=== PATIENT | male | born 1960 | race Hispanic/Latino ===

== ENCOUNTER 2022-07-17 01:28 | Inpatient (IN) | payer OTHER ==
[~2022-07-17] VITALS: Ht 172.7 cm; Wt 112.0 kg
[2022-07-17 05:36] VITALS: BP 142/84
[2022-07-17 07:00] VITALS: BP 135/81
[2022-07-17] MEDS ORDERED: ACET325T51 PO (07:09)
[2022-07-17] MEDS ORDERED: POLY17PO4 PO (07:09)
[2022-07-17] MEDS ORDERED: ATOR-2 PO (07:09)
[2022-07-17] MEDS ORDERED: ENOX120D SQ (07:09)
[2022-07-17] MEDS ORDERED: NALO.4II IV (07:09)
[2022-07-17] MEDS ORDERED: ASPI-1197 PO (07:09)
[2022-07-17] MEDS ORDERED: INSU100V SQ (07:09)
[2022-07-17] MEDS ORDERED: MAGN2PIG IV (07:09)
[2022-07-17] MEDS ORDERED: ONDA22I IV (07:09)
[2022-07-17] MEDS ORDERED: NS1000 IV (07:09)
[2022-07-17] MEDS ORDERED: CILO50TA2 PO (07:09)
[2022-07-17] MEDS ORDERED: HYDR0.5S2 IV (07:09)
[2022-07-17] MEDS ORDERED: KCL10IV IV (07:09)
[2022-07-17] MEDS ORDERED: SACU1TAB7 PO (07:09)
[2022-07-17] MEDS ORDERED: FOLI0.8T2 PO (07:09)
[2022-07-17] MEDS ORDERED: ACET650S14 RC (07:09)
[2022-07-17] MEDS ORDERED: DIGO125T71 PO (07:09)
[2022-07-17] MEDS ORDERED: [UNRECOGNIZED DRUG - CODE] IV (07:09)
[2022-07-17] MEDS ORDERED: MAG-37 PO (07:09)
[2022-07-17] MEDS ORDERED: POTA-202 PO (07:09)
[2022-07-17] MEDS ORDERED: HYDR-4060 PO (07:09)
[2022-07-17 08:03] LABS: HEMATOCRIT 39.7 % (42-54); MEAN CORPUSCULAR HEMOGLOBIN 30.8 pg (27.0-33.0); MEAN CORPUSCULAR VOLUME 93.4 fL (79-99); RED BLOOD CELL COUNT(AUTO) 4.25 MIL/uL (4.50-6.20); RED CELL DISTRIBUTION WIDTH 12.6 % (11.0-15.5); WHITE BLOOD COUNT (AUTO) 7.1 K/uL (4.8-10.8)
[2022-07-17 08:27] LABS: ALBUMIN 2.9 g/dL (3.5-5.0); CREATININE 1.2 mg/dL (0.5-1.5); MAGNESIUM 2.1 mg/dL (1.80-2.40); POTASSIUM 4.3 mmol/L (3.5-5.1)
[2022-07-17] MEDS ORDERED: ONDANSETRON 4MG INJ ONE (08:52)
[2022-07-17 10:34] LABS: INR 1.01 (0.85-1.15)
[2022-07-17 10:35] LABS: PARTIAL THROMBOPLASTIN TIME 33.3 SEC (26.3-35.5)
[2022-07-17 11:00] VITALS: BP 146/90
[2022-07-17 13:28] LABS: HEMOGLOBIN A1C 7.4 % (4.0-6.0)
[2022-07-17] MEDS: ARTIFICAL TEARS SOL 15 ML OU SCH ×2 (13:30→20:15)
[2022-07-17] MEDS ORDERED: ACETAMINOPHEN 325 MG TAB PO PRN ×2 (13:30→15:30)
[2022-07-17 13:47] LABS: CHOLESTEROL 126 mg/dL (<200); HDL CHOLESTEROL 35 mg/dL (29-71); LDL DIRECT 80 mg/dL (0-99); TRIGLYCERIDES 108 mg/dL (30-200)
[2022-07-17] MEDS ORDERED: ACETAMINOPHEN 650 MG SUPPOSITORY RC PRN (15:30)
[2022-07-17] MEDS ORDERED: MAGNESIUM 2GM PREMIX 50ML IV PRN (15:30)
[2022-07-17] MEDS ORDERED: POTASSIUM CHLORIDE 10MEQ/100ML 10 MEQ/100 ML ML IV PRN (15:30)
[2022-07-17] MEDS ORDERED: SODIUM CHLORIDE 0.9% IV PRN (15:30)
[2022-07-17] MEDS ORDERED: ONDANSETRON 4MG INJ IV PRN (15:30)
[2022-07-17] MEDS ORDERED: [UNRECOGNIZED DRUG - OTHER] IV PRN (15:30)
[2022-07-17] MEDS ORDERED: POLYETHYLENE GLYCOL 3350 17 GM POWD.PACK PO PRN (15:30)
[2022-07-17] MEDS ORDERED: KCL 20 MEQ ERTAB PO PRN (15:30)
[2022-07-17] MEDS ORDERED: NALOXONE HCL 0.4 MG/1 ML ML IV PRN (15:30)
[2022-07-17] MEDS ORDERED: CALCIUM GLUCONATE IV PRN (15:30)
[2022-07-17] MEDS ORDERED: CLOPIDOGREL 300MG TAB PO SCH (15:30)
[2022-07-17] MEDS ORDERED: MAG/ALUM/SIMETH 30 ML UDCUP PO PRN (15:30)
[2022-07-17] MEDS: INSULIN HUMULIN R 100 UNIT/ML 3ML SQ SCH ×2 (15:42→20:19)
[2022-07-17 16:00] VITALS: BP 138/78
[2022-07-17] MEDS ORDERED: CALCIUM GLUC 1GM 1 GM in 0.9%NACL 100ML 100 ML IV SCH (16:00)
[2022-07-17] MEDS ORDERED: IPRATROPIUM 0.5 MG/2.5 ML INH IH SCH (18:00)
[2022-07-17 20:05] VITALS: BP 132/80
[2022-07-17] MEDS: SACUBITRIL/VALSARTAN 1 EACH TABLET PO SCH (20:16)
[2022-07-17] MEDS: ATORVASTATIN 40 MG TABLET PO SCH (20:16)
[2022-07-17] MEDS: FAMOTIDINE 20MG TAB PO SCH (20:20)
[2022-07-17] MEDS: HYDROCODONE/ACETAMINOPHEN 5/325 MG TAB PO PRN (20:28)
[2022-07-17 23:43] VITALS: BP 141/73
[2022-07-18] VITALS (12 sets, daily range): BP systolic 102–147; BP diastolic 50–78
[2022-07-18] MEDS: ARTIFICAL TEARS SOL 15 ML OU SCH ×4 (01:01→18:14)
[2022-07-18] MEDS: HYDROMORPHONE 0.5 MG SYG (0.5MG/0.5ML) IV PRN ×2 (01:41→09:09)
[2022-07-18 03:36] LABS: BASOPHILS % (AUTO) 0.6 % (0.0-5.0); EOSINOPHILS % (AUTO) 3.9 % (0.0-8.0); HEMATOCRIT 39.1 % (42-54); LYMPHOCYTES % (AUTO) 26.5 % (21.0-51.0); MEAN CORPUSCULAR HEMOGLOBIN 30.5 pg (27.0-33.0); MEAN CORPUSCULAR HGB CONC 33.2 g/dL (32.0-36.0); MEAN CORPUSCULAR VOLUME 91.8 fL (79-99); MONOCYTES % (AUTO) 11.5 % (3.0-13.0); NEUTROPHILS % (AUTO) 57.4 % (40.0-77.0); PLATELET COUNT (AUTO) 273 K/uL (130-400); RED BLOOD CELL COUNT(AUTO) 4.26 MIL/uL (4.50-6.20); RED CELL DISTRIBUTION WIDTH 12.6 % (11.0-15.5); WHITE BLOOD COUNT (AUTO) 6.7 K/uL (4.8-10.8)
[2022-07-18 03:52] LABS: CREATININE 1.2 mg/dL (0.5-1.5); MAGNESIUM 2.2 mg/dL (1.80-2.40); PHOSPHORUS 3.3 mg/dL (2.5-4.9)
[2022-07-18] MEDS: 0.9%NACL 1000ML 1,000 ML IV SCH ×2 (05:00→09:58)
[2022-07-18] MEDS ORDERED: DEXTROSE 50%-WATER 50 ML DISP.SYRIN IV ONE (05:45)
[2022-07-18] MEDS: INSULIN HUMULIN R 100 UNIT/ML 3ML SQ SCH ×4 (07:30→21:00)
[2022-07-18] MEDS: SACUBITRIL/VALSARTAN 1 EACH TABLET PO SCH ×2 (09:00→21:04)
[2022-07-18] MEDS: ASPIRIN 81MG CHEW TAB PO SCH (09:00)
[2022-07-18] MEDS: CLOPIDOGREL 75MG TAB PO SCH (09:00)
[2022-07-18] MEDS: FAMOTIDINE 20MG TAB PO SCH ×2 (09:00→21:04)
[2022-07-18] MEDS: Vitamin B Complex/Vit C/Folic Acid PO SCH (09:00)
[2022-07-18] MEDS ORDERED: FENTANYL CITRATE PF 50 MCG/1 ML 2ML VIAL ONE ×2 (09:46→11:30)
[2022-07-18] MEDS ORDERED: LIDOCAINE HCL 400MG/20ML VIAL ONE (09:46)
[2022-07-18] MEDS ORDERED: HEPARIN 10,000 UNIT/10ML (1,000 UNIT/ML) VIAL ONE (09:47)
[2022-07-18] MEDS ORDERED: IODIXANOL 320 MG/ML 100 ML VIAL ONE (09:47)
[2022-07-18] MEDS ORDERED: MIDAZOLAM HCL 1 MG/ML 2ML VIAL ONE ×2 (09:47→11:31)
[2022-07-18] MEDS ORDERED: NITROGLYCERIN 50MG VIAL ONE (09:47)
[2022-07-18] MEDS ORDERED: NICARDIPINE 25MG INJ IV ONE (11:11)
[2022-07-18] MEDS ORDERED: LABETALOL 20MG SYG IV ONE (11:11)
[2022-07-18] MEDS ORDERED: HEPARIN 1,000 UNIT VIAL ONE (11:33)
[2022-07-18] MEDS ORDERED: ASPIRIN 325MG EC TAB PO ONE (12:16)
[2022-07-18] MEDS ORDERED: GLUCAGON 1MG KIT 1 MG ML IM PRN (12:30)
[2022-07-18] MEDS ORDERED: 0.9%NACL 1000ML 1,000 ML IV SCH (12:30)
[2022-07-18] MEDS ORDERED: DEXTROSE 50%-WATER 50 ML DISP.SYRIN IV PRN (12:30)
[2022-07-18] MEDS: DIGOXIN 125 MCG TABLET PO SCH (16:55)
[2022-07-18] MEDS: HYDROCODONE/ACETAMINOPHEN 5/325 MG TAB PO PRN ×2 (16:55→21:04)
[2022-07-18] MEDS: ATORVASTATIN 40 MG TABLET PO SCH (21:04)
[2022-07-19 00:04] VITALS: BP 147/79
[2022-07-19] MEDS: ARTIFICAL TEARS SOL 15 ML OU SCH ×4 (01:30→17:11)
[2022-07-19] MEDS: HYDROCODONE/ACETAMINOPHEN 5/325 MG TAB PO PRN ×2 (03:30→17:14)
[2022-07-19 03:56] VITALS: BP 153/82
[2022-07-19 03:58] LABS: HEMATOCRIT 38.1 % (42-54); MEAN CORPUSCULAR HEMOGLOBIN 30.8 pg (27.0-33.0); MEAN CORPUSCULAR HGB CONC 33.3 g/dL (32.0-36.0); MEAN CORPUSCULAR VOLUME 92.3 fL (79-99); RED BLOOD CELL COUNT(AUTO) 4.13 MIL/uL (4.50-6.20); RED CELL DISTRIBUTION WIDTH 12.6 % (11.0-15.5); WHITE BLOOD COUNT (AUTO) 8.5 K/uL (4.8-10.8)
[2022-07-19 04:09] LABS: CREATININE 1.1 mg/dL (0.5-1.5); POTASSIUM 4.1 mmol/L (3.5-5.1)
[2022-07-19 04:27] LABS: DIGOXIN 0.29 ng/mL (0.50-2.00)
[2022-07-19 07:00] VITALS: BP 130/82
[2022-07-19] MEDS: INSULIN HUMULIN R 100 UNIT/ML 3ML SQ SCH ×4 (07:30→19:47)
[2022-07-19] MEDS: CLOPIDOGREL 75MG TAB PO SCH (07:46)
[2022-07-19] MEDS: SACUBITRIL/VALSARTAN 1 EACH TABLET PO SCH ×2 (07:46→19:46)
[2022-07-19] MEDS: ASPIRIN 81MG CHEW TAB PO SCH (07:46)
[2022-07-19] MEDS: FAMOTIDINE 20MG TAB PO SCH ×2 (07:46→19:46)
[2022-07-19] MEDS: HYDROMORPHONE 0.5 MG SYG (0.5MG/0.5ML) IV PRN ×2 (07:47→12:48)
[2022-07-19] MEDS: Vitamin B Complex/Vit C/Folic Acid PO SCH (07:47)
[2022-07-19 11:46] VITALS: BP 125/82
[2022-07-19 16:00] VITALS: BP 134/78
[2022-07-19] MEDS: DIGOXIN 125 MCG TABLET PO SCH (17:15)
[2022-07-19] MEDS: ATORVASTATIN 40 MG TABLET PO SCH (19:46)
[2022-07-19 19:50] VITALS: BP 151/79
[2022-07-20] VITALS (7 sets, daily range): BP systolic 114–140; BP diastolic 56–89
[2022-07-20] MEDS: ARTIFICAL TEARS SOL 15 ML OU SCH ×4 (00:49→17:11)
[2022-07-20] MEDS: INSULIN HUMULIN R 100 UNIT/ML 3ML SQ SCH ×4 (06:37→20:27)
[2022-07-20] MEDS: HYDROMORPHONE 0.5 MG SYG (0.5MG/0.5ML) IV PRN ×2 (07:14→20:38)
[2022-07-20] MEDS: CLOPIDOGREL 75MG TAB PO SCH (07:15)
[2022-07-20] MEDS: SACUBITRIL/VALSARTAN 1 EACH TABLET PO SCH ×2 (07:17→20:24)
[2022-07-20] MEDS: Vitamin B Complex/Vit C/Folic Acid PO SCH (07:17)
[2022-07-20] MEDS: FAMOTIDINE 20MG TAB PO SCH ×2 (07:17→20:25)
[2022-07-20] MEDS: ASPIRIN 81MG CHEW TAB PO SCH (07:19)
[2022-07-20] MEDS: HYDROCODONE/ACETAMINOPHEN 5/325 MG TAB PO PRN (11:28)
[2022-07-20] MEDS ORDERED: VANCOMYCIN PROTOCOL PER PHARMACY IV SCH (14:00)
[2022-07-20] MEDS ORDERED: VANCOMYCIN 1.5 GM/250 ML BAG 250 ML IV SCH (14:13)
[2022-07-20] MEDS ORDERED: COMPOUND IV REFRIGERATED 1 EACH IVSOLN MISC PRN (14:30)
[2022-07-20] MEDS: ZOSYN 3.375GM +NS 50ML IVPB SCH ×2 (14:31→22:09)
[2022-07-20] MEDS: DIGOXIN 125 MCG TABLET PO SCH (16:31)
[2022-07-20] MEDS: VANCOMYCIN 1.5 GM/250 ML BAG 250 ML IV SCH (20:24)
[2022-07-20] MEDS: ATORVASTATIN 40 MG TABLET PO SCH (20:25)
[2022-07-21] MEDS: ARTIFICAL TEARS SOL 15 ML OU SCH ×4 (01:20→20:58)
[2022-07-21 03:14] VITALS: BP 135/83
[2022-07-21] MEDS: ZOSYN 3.375GM +NS 50ML IVPB SCH ×3 (05:40→22:23)
[2022-07-21] MEDS: HYDROMORPHONE 0.5 MG SYG (0.5MG/0.5ML) IV PRN ×4 (05:40→22:53)
[2022-07-21] MEDS: INSULIN HUMULIN R 100 UNIT/ML 3ML SQ SCH ×4 (05:41→20:49)
[2022-07-21] MEDS: ASPIRIN 81MG CHEW TAB PO SCH (08:12)
[2022-07-21] MEDS: Vitamin B Complex/Vit C/Folic Acid PO SCH (08:12)
[2022-07-21] MEDS: FAMOTIDINE 20MG TAB PO SCH ×2 (08:12→20:49)
[2022-07-21] MEDS: VANCOMYCIN 1.5 GM/250 ML BAG 250 ML IV SCH ×2 (08:12→20:47)
[2022-07-21] MEDS: CLOPIDOGREL 75MG TAB PO SCH (08:13)
[2022-07-21] MEDS: BACITRACIN 1 EACH PACKET TP SCH (08:13)
[2022-07-21] MEDS: SACUBITRIL/VALSARTAN 1 EACH TABLET PO SCH ×2 (08:13→20:49)
[2022-07-21 08:40] VITALS: BP 136/73
[2022-07-21 11:43] VITALS: BP 136/66
[2022-07-21 16:30] VITALS: BP 135/75
[2022-07-21] MEDS: DIGOXIN 125 MCG TABLET PO SCH (16:30)
[2022-07-21 18:59] VITALS: BP 143/78
[2022-07-21] MEDS: ATORVASTATIN 40 MG TABLET PO SCH (20:49)
[2022-07-21] MEDS: ENOXAPARIN SODIUM 40 MG/0.4 ML SYRINGE SQ SCH (22:30)
[2022-07-21 23:10] VITALS: BP 146/82
[2022-07-22] MEDS: ARTIFICAL TEARS SOL 15 ML OU SCH ×2 (01:08→06:40)
[2022-07-22 03:18] VITALS: BP 135/78
[2022-07-22 03:34] LABS: BASOPHILS % (AUTO) 0.3 % (0.0-5.0); LYMPHOCYTES % (AUTO) 17.9 % (21.0-51.0); MEAN CORPUSCULAR HGB CONC 33.9 g/dL (32.0-36.0); MEAN CORPUSCULAR VOLUME 91.3 fL (79-99); MONOCYTES % (AUTO) 8.6 % (3.0-13.0); NEUTROPHILS % (AUTO) 69.8 % (40.0-77.0); PLATELET COUNT (AUTO) 255 K/uL (130-400); RED BLOOD CELL COUNT(AUTO) 4.16 MIL/uL (4.50-6.20); RED CELL DISTRIBUTION WIDTH 12.6 % (11.0-15.5); WHITE BLOOD COUNT (AUTO) 9.6 K/uL (4.8-10.8)
[2022-07-22 04:09] LABS: CREATININE 1.1 mg/dL (0.5-1.5); POTASSIUM 4.1 mmol/L (3.5-5.1)
[2022-07-22] MEDS: HYDROMORPHONE 0.5 MG SYG (0.5MG/0.5ML) IV PRN ×2 (05:16→11:22)
[2022-07-22] MEDS: ZOSYN 3.375GM +NS 50ML IVPB SCH (05:19)
[2022-07-22] MEDS: INSULIN HUMULIN R 100 UNIT/ML 3ML SQ SCH ×2 (05:48→11:22)
[2022-07-22 07:42] VITALS: BP 146/76
[2022-07-22] MEDS ORDERED: CLOP-31 PO (09:02)
[2022-07-22] MEDS ORDERED: DOXY100C5 PO (09:02)
[2022-07-22] MEDS: Vitamin B Complex/Vit C/Folic Acid PO SCH (09:13)
[2022-07-22] MEDS: FAMOTIDINE 20MG TAB PO SCH (09:14)
[2022-07-22] MEDS: ASPIRIN 81MG CHEW TAB PO SCH (09:14)
[2022-07-22] MEDS: SACUBITRIL/VALSARTAN 1 EACH TABLET PO SCH (09:14)
[2022-07-22] MEDS: BACITRACIN 1 EACH PACKET TP SCH (09:14)
[2022-07-22] MEDS: CLOPIDOGREL 75MG TAB PO SCH (09:14)
[2022-07-22] MEDS: ENOXAPARIN SODIUM 40 MG/0.4 ML SYRINGE SQ SCH (09:15)
[2022-07-22] MEDS: VANCOMYCIN 1.5 GM/250 ML BAG 250 ML IV SCH (09:16)
[2022-07-22 12:32] VITALS: BP 137/92
== END 2022-07-22 15:43 | disposition home or self-care (01) | DRG 272 ==
LOC: 2DH 05:09 → OBSVTOIN 05:09
PROVIDERS: ADMIT Internal Medicine Critical Care Medicine; ATTEND Internal Medicine Critical Care Medicine
PROC: 04CK3ZZ Extirpation of Matter from Right Femoral Artery, Percutaneous Approach (ICD-10-PCS; principal; 2022-07-18)
PROC: 047K3D1 Dilation of Right Femoral Artery with Intraluminal Device, using Drug-Coated Balloon, Percutaneous Approach (ICD-10-PCS; 2022-07-18)
PROC: 047T3D1 Dilation of Right Peroneal Artery with Intraluminal Device, using Drug-Coated Balloon, Percutaneous Approach (ICD-10-PCS; 2022-07-18)
PROC: 04CT3ZZ Extirpation of Matter from Right Peroneal Artery, Percutaneous Approach (ICD-10-PCS; 2022-07-18)
PROC: B41D1ZZ Fluoroscopy of Aorta and Bilateral Lower Extremity Arteries using Low Osmolar Contrast (ICD-10-PCS; 2022-07-18)
DX: E11.51 Type 2 diabetes mellitus with diabetic peripheral angiopathy without gangrene (principal); E11.22 Type 2 diabetes mellitus with diabetic chronic kidney disease; I12.9 Hypertensive chronic kidney disease with stage 1 through stage 4 chronic kidney disease, or unspecified chronic kidney disease; I25.10 Atherosclerotic heart disease of native coronary artery without angina pectoris; E11.621 Type 2 diabetes mellitus with foot ulcer; E66.09 Other obesity due to excess calories; E78.5 Hyperlipidemia, unspecified; N18.30 Chronic kidney disease, stage 3 unspecified; Z79.82 Long term (current) use of aspirin; Z95.5 Presence of coronary angioplasty implant and graft; Z68.37 Body mass index [BMI] 37.0-37.9, adult
CPT/HCPCS: 36415; 37225; 37229; 71045; 73718; 75716; 80048; 80053; 80061; 80162; 80202; 82948; 83036; 83735; 84100; 85025; 85027; 85610; 85730; 87040; 87070; 87076; 87077; 87186; 99156; 99157; C1724; C1760; C1769; C1893; C1894; G0378; J1170; J1644; J1650; J1815; J2250; J2405; J2543; J3010; J3490; J7070; Q9967